=== PATIENT | female | born 1960 | race Caucasian/White ===

== ENCOUNTER → 2017-07-11 | Outpatient (CLI) | payer BC, OTHER ==
[~2017-07-11] MED LIST: ASCO500T20 PO; ASPI-586 PO; ATEN100T PO; CALC-250 PO; CEPH-38 PO; CETI10TA57 PO; CYAN500T2 PO; ESTR0.5T3 PO; HYDR-623 PO; LACT1TAB13 PO; OXYC-12 PO; PRAV40TA2 PO; TRAM50TA2 PO
== END ==
LOC: RAD 09:58
PROVIDERS: ATTEND Nurse Practitioner
DX: Z12.31 Encounter for screening mammogram for malignant neoplasm of breast (principal)
CPT/HCPCS: 77067

== ENCOUNTER → 2019-07-23 | Outpatient (CLI) | payer BC ==
[~2019-07-23] MED LIST changes: +BARIUM SUSPENSION 105% (LIQUID POLIBAR PLUS) 240 ML/DOSE PO ONE; +BARIUM SUSPENSION 60% (LIQUID EZ PAQUE) 240 ML DOSE PO ONE
--- NOTE | 2019-07-23 11:25 | Diagnostic Imaging Report ---
INDICATION: Atypical chest pain. Patient ingested effervescent crystals as well as thin and thick barium and imaging of the esophagus was performed. A total of 55 seconds of fluoroscopic time was utilized. Preliminary radiograph of the chest is unremarkable. The esophagus has a smooth contour. No mass or stricture is seen. No gastroesophageal reflux or hiatal hernia was demonstrated. IMPRESSION: Unremarkable esophagram. Dictated by: Dictated on workstation # [id number]
== END ==
LOC: RAD 10:13
PROVIDERS: ATTEND Internal Medicine
DX: R07.89 Other chest pain (principal)
CPT/HCPCS: 74220

== ENCOUNTER → 2019-09-14 | Outpatient (CLI) | payer BC ==
[~2019-09-14] MED LIST changes: -BARIUM SUSPENSION 105% (LIQUID POLIBAR PLUS) 240 ML/DOSE PO ONE; -BARIUM SUSPENSION 60% (LIQUID EZ PAQUE) 240 ML DOSE PO ONE
--- NOTE | 2019-09-14 17:11 | Diagnostic Imaging Report ---
INDICATION: Lower respiratory infection PA and lateral chest Heart size and pulmonary vascularity are normal. Lungs are clear. There are no effusions or pneumothoraces. IMPRESSION: Negative chest Dictated by: Dictated on workstation # [id number]
== END ==
LOC: RAD 16:48
PROVIDERS: ATTEND Nurse Practitioner Family
DX: J22 Unspecified acute lower respiratory infection (principal)
CPT/HCPCS: 71046

== ENCOUNTER → 2019-11-08 | Outpatient (CLI) | payer BC ==
[~2019-11-08] VITALS: Ht 170 cm; Wt 54.0 kg
[~2019-11-08] MED LIST changes: +CATHETER FLUSH 10 ML SYR IV PRN
[2019-11-08 07:57] VITALS: BP 109/71
[2019-11-08 08:16] VITALS: BP 146/86
--- NOTE | 2019-11-08 17:16 | STRESS TEST ---
DATE OF SERVICE: 11/08/2019 NUCLEAR MYOVIEW REPORT REFERRING PHYSICIAN: Devin Angel DO In summary, the patient was injected with 10.81 mCi of technetium-99 Myoview and the resting images were obtained. With peak stress level, a 33.0 mCi of technetium-99 Myoview were injected and the stress images were acquired, the resting and stress images were reviewed and compared in the short axis, horizontal long axis, and vertical long axis views. Review of the images showed good radiotracer uptake with no ischemia or infarction. SSS is 2, SDS 2, TID value 0.95. On the gated images, the left ventricle appeared to be normal size with normal contractility, calculated ejection fraction 70%. CONCLUSION: 1. No ischemia or infarction on SPECT images. 2. Normal left ventricular size and normal contractility, calculated ejection fraction 70%. Job ID: [id number] DocumentID: [id number] Dictated Date: 11/08/2019 16:22:30 Head Of Business Development Date: 11/08/2019 17:15:07 Dictated By: AILYN LEMONS MD
== END ==
LOC: CARD 06:40
PROVIDERS: ATTEND Internal Medicine
DX: R07.89 Other chest pain (principal)
CPT/HCPCS: 78452; 93017

== ENCOUNTER → 2019-11-15 | Outpatient (CLI) | payer BC ==
[~2019-11-15] MED LIST changes: -CATHETER FLUSH 10 ML SYR IV PRN
--- NOTE | 2019-11-15 15:37 | Diagnostic Imaging Report ---
PROCEDURE: US Thyroid. TECHNIQUE: Multiple real-time grayscale images were obtained of the thyroid in various projections. INDICATION: Fatigue and malaise. FINDINGS: Right lobe of the thyroid measures 4.7 x 1.4 x 1.5 cm, and the left lobe measures 4.6 x 1.2 x 1.4 cm. Both lobes contain multiple tiny nodules. Largest nodule on the right is in the lower pole measuring 0.9 x 0.6 x 0.6 cm. There are two tiny cystic lesions in the right mid lobe, approximately 3 mm in size. Several small cysts in the left lobe are also noted, all measuring approximately 3-4 mm. No dominant thyroid mass is detected. IMPRESSION: Bilateral thyroid cysts as well as subcentimeter solid nodule in the lower pole of the right lobe. No dominant thyroid mass is detected. Dictated by: Dictated on workstation # [id number]
== END ==
LOC: RAD 11:09
PROVIDERS: ATTEND Internal Medicine
DX: E04.2 Nontoxic multinodular goiter (principal)
CPT/HCPCS: 76536

== ENCOUNTER → 2020-04-10 | Outpatient (CLI) | payer BC ==
--- NOTE | 2020-04-10 16:53 | Diagnostic Imaging Report ---
INDICATION: Back pain Thoracic spine AP and lateral views of the thoracic spine show normal vertebral body height and alignment. Disc spaces are normal. There is scoliosis of the thoracic spine convex to the left. This measures 9 degrees. IMPRESSION: Sclerotic curvature thoracic spine convex to the left with compensatory curve to the right in the lumbar spine. No acute abnormality seen. Dictated by: Dictated on workstation # [id number]
--- NOTE | 2020-04-10 17:21 | Diagnostic Imaging Report ---
Indication: Low back pain Lumbar spine AP lateral views of the lumbar spine shows normal vertebral body height and alignment. There is scoliosis of the lumbar spine convex right. There is left-sided disc space narrowing at L3-L4. IMPRESSION: Scoliosis with mild degenerative disc changes L3-L4. No acute abnormality seen. Dictated by: Dictated on workstation # [id number]
== END ==
LOC: RAD 16:27
PROVIDERS: ATTEND Chiropractor
DX: M51.36 Other intervertebral disc degeneration, lumbar region (principal); M41.85 Other forms of scoliosis, thoracolumbar region
CPT/HCPCS: 72072; 72100

== ENCOUNTER → 2020-09-21 | Outpatient (CLI) | payer BC ==
--- NOTE | 2020-09-21 16:04 | Diagnostic Imaging Report ---
Indication: Pelvic pain Pelvis AP view pelvis shows no fracture or dislocation. IMPRESSION: Unremarkable pelvis Dictated by: Dictated on workstation # [id number]
--- NOTE | 2020-09-21 18:10 | Diagnostic Imaging Report ---
INDICATION: Fall with sacral pain AP, and lateral views of the sacrum and coccyx are obtained. No overt fracture or acute bony abnormality is seen. Sacral foramina appear symmetric. SI joints are unremarkable in appearance. IMPRESSION: Negative sacrum and coccyx. Dictated by: Dictated on workstation # [id number]
== END ==
LOC: RAD 14:14
PROVIDERS: ATTEND Internal Medicine
DX: M53.3 Sacrococcygeal disorders, not elsewhere classified (principal); R10.2 Pelvic and perineal pain
CPT/HCPCS: 72170; 72220

== ENCOUNTER → 2021-11-13 | Outpatient (CLI) | payer BC ==
--- NOTE | 2021-11-13 11:10 | Diagnostic Imaging Report ---
INDICATION: 60-year-old postmenopausal female. COMPARISON: None FINDINGS: AP Spine L1-L4: [BMD (g/cm2): 1.493] [T-Score: 2.4] [Z-Score: 4.0] [BMD Previous: NA] [BMD % Change: NA] LT Hip Neck: [BMD (g/cm2): 0.947] [T-Score: -0.7] [Z-Score: 0.8] LT Hip Total: [BMD (g/cm2):0.986] [T-Score:-0.2] [Z-Score: 1.0] [BMD Previous: NA] [BMD % Change: NA] RT Hip Neck: [BMD (g/cm2):0.909] [T-Score:-0.9] [Z-Score:0.5] RT Hip Total: [BMD (g/cm2):0.967] [T-score:-0.3] [Z-Score:0.9] [BMD Previous:NA] [BMD % Change:NA] World Health Organization criteria for BMD interpretation classify patients as Normal (T-score at or above -1.0), Osteopenic (T-score between -1.0 and -2.5) or Osteoporotic (T-score at or below -2.5). LIMITATIONS AND MODIFICATION: None. FRACTURE RISK (FRAX SCORE): The ten year probability of (%): Major Osteoporotic Fracture: [NA] Hip Fracture: [NA] IMPRESSION: 1. Normal bone mineral density. 2. Baseline examination. 3. See below National Osteoporosis Foundation guidelines on when to potentially initiate pharmacologic therapy. Based on the National Osteoporosis Foundation Guidelines, pharmacologic treatment should be initiated in any of the following, unless clinical conditions suggest otherwise: * Any patient with prior fragility fracture of the hip or vertebrae. A spine fracture indicates 5X risk for subsequent spine fracture and 2X risk for subsequent hip fracture. * Osteoporosis (T-score <-2.5). * Postmenopausal women and men age 50 and older with low bone mass/osteopenia (T-score between -1.0 and -2.5) by DXA and 10-year major osteoporotic fracture greater than 20% or a 10-year probability of hip fracture greater than 3%. These fracture risks are supplied above in the FRAX score, if applicable. * Clinician judgement and/or patient preferences may indicate treatment for people with 10-year fracture probabilities above or below these levels. Dictated by: Dictated on workstation # [id number]
== END ==
LOC: RAD 10:00
PROVIDERS: ATTEND Internal Medicine
DX: Z13.820 Encounter for screening for osteoporosis (principal); Z78.0 Asymptomatic menopausal state
CPT/HCPCS: 77080

== ENCOUNTER 2021-11-23 10:59 | Outpatient (RCR) | payer BC ==
[2021-11-23 11:46] VITALS: BP 120/88
[2021-11-23] MEDS ORDERED: OMALIZUMAB SUB-Q 150 MG (XOLAIR) VIAL SQ SCH (12:00)
== END 2021-12-10 | disposition home or self-care (01) ==
LOC: SDC 10:59
PROVIDERS: ATTEND Internal Medicine
DX: L50.9 Urticaria, unspecified (principal)
CPT/HCPCS: 96372

== ENCOUNTER 2021-12-21 11:12 | Outpatient (RCR) | payer BC ==
[2021-12-21 11:20] VITALS: BP 119/78
[2021-12-21] MEDS ORDERED: OMALIZUMAB SUB-Q 150 MG (XOLAIR) VIAL SQ SCH (11:24)
== END 2022-01-10 | disposition home or self-care (01) ==
LOC: SDC 11:12
PROVIDERS: ATTEND Internal Medicine
DX: L50.9 Urticaria, unspecified (principal)
CPT/HCPCS: 96372

== ENCOUNTER 2022-01-18 11:37 | Outpatient (RCR) | payer BC ==
[~2022-01-18] VITALS: Ht 172.7 cm; Wt 55.0 kg
[2022-01-18] MEDS ORDERED: OMALIZUMAB SUB-Q 150 MG (XOLAIR) VIAL SQ SCH (11:46)
[2022-01-18 11:55] VITALS: BP 136/85
== END 2022-02-09 | disposition home or self-care (01) ==
LOC: SDC 11:37
PROVIDERS: ATTEND Internal Medicine
DX: L50.9 Urticaria, unspecified (principal)
CPT/HCPCS: 96372

== ENCOUNTER 2022-02-15 11:31 | Outpatient (RCR) | payer BC ==
[~2022-02-15] VITALS: Wt 55.0 kg
[2022-02-15 11:40] VITALS: BP 148/95
[2022-02-15] MEDS ORDERED: OMALIZUMAB SUB-Q 150 MG (XOLAIR) VIAL SQ SCH (12:10)
== END 2022-03-12 | disposition home or self-care (01) ==
LOC: SDC 11:31
PROVIDERS: ATTEND Internal Medicine
DX: L50.9 Urticaria, unspecified (principal)
CPT/HCPCS: 96372

== ENCOUNTER → 2022-03-01 | Outpatient (CLI) | payer BC ==
--- NOTE | 2022-03-04 15:47 | Diagnostic Imaging Report ---
INDICATION: Routine screening. Comparison is made with prior mammogram from 07/11/2017. Bilateral breast implants again noted. Implant contours appear to be fairly smooth. No definite evidence of extracapsular rupture is noted. Both breasts are heterogeneously dense, limiting the sensitivity of mammography. No dominant mass or malignant-appearing microcalcifications are seen. Axillae are unremarkable. IMPRESSION: No mammographic features suspicious for malignancy are identified. ACR BI-RADS Category 2: Benign findings. Result letter will be mailed to the patient. Note: At least 10% of breast cancer is not imaged by mammography. BI-RADS Category 2 Dictated by: Dictated on workstation # [id number]
== END ==
LOC: RAD 10:15
PROVIDERS: ATTEND Internal Medicine
DX: Z12.31 Encounter for screening mammogram for malignant neoplasm of breast (principal)
CPT/HCPCS: 77063; 77067

== ENCOUNTER 2022-03-15 11:43 | Outpatient (RCR) | payer BC ==
[~2022-03-15] VITALS: Wt 55.0 kg
[2022-03-15 11:50] VITALS: BP 158/87
[2022-03-15] MEDS ORDERED: OMALIZUMAB SUB-Q 150 MG (XOLAIR) VIAL SQ SCH (12:00)
== END 2022-04-11 | disposition home or self-care (01) ==
LOC: SDC 11:43
PROVIDERS: ATTEND Internal Medicine
DX: L50.9 Urticaria, unspecified (principal)
CPT/HCPCS: 96372

== ENCOUNTER 2022-05-10 12:27 | Outpatient (RCR) | payer BC ==
[2022-04-12 12:12] VITALS: BP 153/88
[~2022-05-10] VITALS: Ht 172.7 cm; Wt 55.0 kg
[~2022-05-10 12:27] MED LIST changes: +OMALIZUMAB SUB-Q 150 MG (XOLAIR) VIAL SQ SCH
[2022-05-10] MEDS ORDERED: OMALIZUMAB SUB-Q 150 MG (XOLAIR) VIAL SQ SCH (12:29)
[2022-05-10 12:53] VITALS: BP 153/88
== END 2022-05-12 | disposition home or self-care (01) ==
LOC: SDC 12:27
PROVIDERS: ATTEND Internal Medicine
DX: L50.9 Urticaria, unspecified (principal); Z79.899 Other long term (current) drug therapy
CPT/HCPCS: 96372

== ENCOUNTER → 2022-06-10 | Day surgery (SDC) | payer BC ==
[~2022-06-10] VITALS: Wt 55.0 kg
[2022-06-10 12:25] VITALS: BP 161/94
== END | disposition home or self-care (01) ==
LOC: SDC 12:13
PROVIDERS: ATTEND Internal Medicine
DX: L50.9 Urticaria, unspecified (principal)
CPT/HCPCS: 96372

== ENCOUNTER → 2022-07-08 | Outpatient (CLI) | payer BC ==
[~2022-07-08] VITALS: Ht 172 cm; Wt 53.6 kg
[2022-07-08 11:55] VITALS: BP 128/80
== END ==
LOC: SDC 11:48
PROVIDERS: ATTEND Internal Medicine
DX: L50.9 Urticaria, unspecified (principal)
CPT/HCPCS: 96372

== ENCOUNTER 2022-08-05 11:54 | Outpatient (CLI) | payer BC ==
[~2022-08-05 11:54] MED LIST changes: -OMALIZUMAB SUB-Q 150 MG (XOLAIR) VIAL SQ SCH
[2022-08-05 12:00] VITALS: BP 150/89
[2022-08-05] MEDS ORDERED: OMALIZUMAB SUB-Q 150 MG (XOLAIR) VIAL SQ SCH (12:00)
== END 2022-08-05 12:15 | disposition home or self-care (01) ==
LOC: SDC 11:54
PROVIDERS: ATTEND Internal Medicine
DX: L50.9 Urticaria, unspecified (principal)
CPT/HCPCS: 96372

== ENCOUNTER → 2022-09-02 | Outpatient (CLI) | payer BC ==
[~2022-09-02] VITALS: Ht 171 cm; Wt 53.6 kg
[~2022-09-02] MED LIST changes: +OMALIZUMAB SUB-Q 150 MG (XOLAIR) VIAL SQ SCH
[2022-09-02 12:28] VITALS: BP 148/90
== END ==
LOC: SDC 12:05
PROVIDERS: ATTEND Internal Medicine
DX: L50.9 Urticaria, unspecified (principal)
CPT/HCPCS: 96372

== ENCOUNTER 2022-09-30 12:00 | Outpatient (RCR) | payer BC ==
[~2022-09-30] VITALS: Ht 171 cm; Wt 53.6 kg
[~2022-09-30 12:00] MED LIST changes: -OMALIZUMAB SUB-Q 150 MG (XOLAIR) VIAL SQ SCH
[2022-09-30] MEDS ORDERED: OMALIZUMAB SUB-Q 150 MG (XOLAIR) VIAL SQ SCH (12:15)
[2022-09-30 12:36] VITALS: BP 134/78
== END 2022-09-30 12:36 | disposition home or self-care (01) ==
LOC: SDC 12:00
PROVIDERS: ATTEND Internal Medicine
DX: L50.9 Urticaria, unspecified (principal)
CPT/HCPCS: 96372

== ENCOUNTER 2022-11-01 13:11 | Outpatient (RCR) | payer BC ==
[~2022-11-01] VITALS: Wt 53.6 kg
[2022-11-01 13:25] VITALS: BP 165/86
[2022-11-01] MEDS ORDERED: OMALIZUMAB SUB-Q 150 MG (XOLAIR) VIAL SQ SCH (13:27)
== END 2022-11-12 | disposition home or self-care (01) ==
LOC: SDC 13:11
PROVIDERS: ATTEND Internal Medicine
DX: L50.9 Urticaria, unspecified (principal)
CPT/HCPCS: 96372

== ENCOUNTER 2022-12-03 11:35 | Outpatient (RCR) | payer BC ==
[~2022-12-03] VITALS: Ht 171 cm; Wt 53.6 kg
[2022-12-03] MEDS ORDERED: OMALIZUMAB SUB-Q 150 MG (XOLAIR) VIAL SQ SCH (11:47)
[2022-12-03 12:00] VITALS: BP 144/92
== END 2022-12-03 12:00 | disposition home or self-care (01) ==
LOC: SDC 11:35
PROVIDERS: ATTEND Internal Medicine
DX: L50.9 Urticaria, unspecified (principal)
CPT/HCPCS: 96372

== ENCOUNTER → 2023-01-01 | Outpatient (CLI) | payer BC ==
[~2023-01-01] VITALS: Ht 170.2 cm; Wt 54.5 kg
[~2023-01-01] MED LIST changes: +OMALIZUMAB SUB-Q 150 MG (XOLAIR) VIAL SQ SCH
[2023-01-01 12:26] VITALS: BP 146/93
== END ==
LOC: SDC 11:50
PROVIDERS: ATTEND Internal Medicine
DX: L50.9 Urticaria, unspecified (principal)
CPT/HCPCS: 96372

== ENCOUNTER 2023-01-29 11:37 | Outpatient (CLI) | payer BC ==
[~2023-01-29] VITALS: Ht 170 cm; Wt 54.5 kg
[~2023-01-29 11:37] MED LIST changes: -OMALIZUMAB SUB-Q 150 MG (XOLAIR) VIAL SQ SCH
[2023-01-29] MEDS ORDERED: OMALIZUMAB SUB-Q 150 MG (XOLAIR) VIAL SQ SCH (12:17)
[2023-01-29 12:35] VITALS: BP 123/82
== END 2023-01-29 12:35 | disposition home or self-care (01) ==
LOC: SDC 11:37
PROVIDERS: ATTEND Internal Medicine
DX: L50.9 Urticaria, unspecified (principal)
CPT/HCPCS: 96372

== ENCOUNTER → 2023-03-12 | Outpatient (CLI) | payer BC ==
[~2023-03-12] VITALS: Wt 54.5 kg
[~2023-03-12] MED LIST changes: +OMALIZUMAB SUB-Q 150 MG (XOLAIR) VIAL SQ SCH
[2023-03-12 13:50] VITALS: BP 124/84
== END ==
LOC: SDC 13:09
PROVIDERS: ATTEND Internal Medicine
DX: L50.9 Urticaria, unspecified (principal); Z79.899 Other long term (current) drug therapy
CPT/HCPCS: 96372

== ENCOUNTER 2023-04-10 13:18 | Outpatient (RCR) | payer BC ==
[~2023-04-10] VITALS: Wt 54.5 kg
[~2023-04-10 13:18] MED LIST changes: -OMALIZUMAB SUB-Q 150 MG (XOLAIR) VIAL SQ SCH
[2023-04-10] MEDS ORDERED: OMALIZUMAB SUB-Q 150 MG (XOLAIR) VIAL SQ SCH (13:28)
[2023-04-10 13:30] VITALS: BP 134/84
== END 2023-04-11 ==
LOC: SDC 13:18
PROVIDERS: ATTEND Internal Medicine
DX: L50.9 Urticaria, unspecified (principal)
CPT/HCPCS: 96372

== ENCOUNTER 2023-07-11 13:00 | Outpatient (RCR) | payer BC ==
[2023-07-09] MEDS: IRON SUCROSE 200 MG/10 ML VIAL IV SCH (13:25)
[2023-07-09 13:56] VITALS: BP 153/94
[~2023-07-11] VITALS: Ht 172.7 cm; Wt 54.5 kg
[~2023-07-11 13:00] MED LIST changes: +EST5V5 IM; +FEXO180T84 PO; +MONT-47 PO; +RANITIDINE PO; +STRAT40CAP PO; +TRIA1TAB3 PO
[2023-07-11] MEDS: IRON SUCROSE 200 MG/10 ML VIAL IV SCH (13:25)
[2023-07-11 13:55] VITALS: BP 132/91
== END 2023-07-12 | disposition home or self-care (01) ==
LOC: SDC 13:00
PROVIDERS: ATTEND Internal Medicine
DX: E61.1 Iron deficiency (principal)
CPT/HCPCS: 96365

== ENCOUNTER → 2023-07-18 | Outpatient (CLI) | payer BC ==
--- NOTE | 2023-07-18 12:59 | Diagnostic Imaging Report ---
INDICATION: Routine screening. Comparison is made with prior mammogram from 03/01/2022 and 07/11/2017. 2-D and 3-D bilateral screening mammography was performed with CAD. Bilateral breast implants again noted. Implant contours on the left appear stable. There does appear to be some slight folding of this implant superiorly on the right breast on the MLO view. Intracapsular rupture cannot be entirely excluded. There is no evidence of extracapsular rupture. Both breasts are heterogeneously dense, limiting the sensitivity of mammography. No mass or malignant-appearing microcalcifications are seen. Axillae are unremarkable. IMPRESSION: No mammographic features suspicious for malignancy are identified. There does appear to be some slight folding of implant on the right and intracapsular rupture cannot be entirely excluded. No other significant abnormality is seen. ACR BI-RADS Category 2: Benign findings. Result letter will be mailed to the patient. Note: At least 10% of breast cancer is not imaged by mammography. Bi-Rads Category 2 Dictated by: Dictated on workstation # [id number]
== END ==
LOC: RAD 09:11
PROVIDERS: ATTEND Internal Medicine
DX: Z12.31 Encounter for screening mammogram for malignant neoplasm of breast (principal)
CPT/HCPCS: 77063; 77067

== ENCOUNTER 2023-08-08 14:21 | Outpatient (RCR) | payer BC ==
[~2023-08-08] VITALS: Wt 54.5 kg
[2023-08-08] MEDS ORDERED: OMALIZUMAB 150 MG INJ (XOLAIR) SQ SCH (14:30)
[2023-08-08 15:23] VITALS: BP 125/85
[2023-08-11] MEDS ORDERED: OMALIZUMAB 150 MG INJ (XOLAIR) SQ SCH (07:00)
== END 2023-08-12 | disposition home or self-care (01) ==
LOC: SDC 14:21
PROVIDERS: ATTEND Internal Medicine
DX: L50.9 Urticaria, unspecified (principal)
CPT/HCPCS: 96372

== ENCOUNTER 2023-09-08 10:40 | Outpatient (RCR) | payer BC ==
[2023-09-08 10:50] VITALS: BP 170/94
[2023-09-08] MEDS ORDERED: OMALIZUMAB 150 MG INJ (XOLAIR) SQ SCH (11:00)
== END 2023-09-11 | disposition home or self-care (01) ==
LOC: SDC 10:40
PROVIDERS: ATTEND Internal Medicine
DX: L50.9 Urticaria, unspecified (principal)
CPT/HCPCS: 96372